=== PATIENT | male | born 2000 | race African-American/Black ===

== ENCOUNTER 2022-04-24 10:57 | Emergency (ER) | payer OTHER, SELFPAY ==
[2022-04-24 11:29] LABS: Absolute Lymphocytes (CBC) 2.4 K/uL (0.7-4.9); Hematocrit 45.6 % (39.6-49.0); Lymphocytes % 41.3 % (15.3-44.8); MCV 91.1 fL (80-100); MPV 8.3 fL (7.6-11.3)
[2022-04-24 11:33] LABS: Protime INR 1.05
[2022-04-24 12:21] LABS: Urine Blood 1+ (Negative); Urine Glucose Negative (Negative); Urine Protein Negative (Negative)
[2022-04-24 12:54] LABS: ALT/SGPT 22 U/L (12-78); Albumin 4.2 g/dL (3.4-5.0); Alkaline Phosphatase 65 U/L (45-117); BUN Blood Urea Nitrogen 15 mg/dL (7-18); Bicarbonate 30 mmol/L (21-32); Bilirubin Total 0.5 mg/dL (0.2-1.0); Glomerular Filtration Rate 93 ml/min (=/>90); Glucose Level 121 mg/dL (74-106); Protein, Total 7.7 g/dL (6.4-8.2); Sodium Level 139 mmol/L (136-145)
[2022-04-24 12:55] LABS: Creatine Phosphokinase 200 U/L (39-308); Lipase 199 U/L (73-393)
[2022-04-24 12:56] LABS: AST/SGOT 19 U/L (15-37); Bilirubin Direct < 0.1 mg/dL (0-0.2); CKMB Creatine Kinase MB < 1.0 ng/mL (1.0-3.6); Magnesium 2.1 mg/dL (1.8-2.4); Potassium 3.6 mmol/L (3.5-5.1)
[2022-04-24] MEDS ORDERED: NA CHLORIDE 0.9% 0 ML ONE (13:01)
--- NOTE | 2022-04-24 14:09 | ER ---
Nurse's Notes [facility] Name: Lisa Gauthier Age: 22 yrs Sex: Male : 2000 Arrival Date: 04/24/2022 Time: 10:59 Bed 17 Private MD: Diagnosis: Syncope Presentation: 04/24 11:00 Chief complaint: Parent and/or Guardian states: he passed out at work, BP was 135/99, iw they gave jacob oxygen , was 94% , he said he got dizzy and his face was numb and he passed out, he works in heat. Coronavirus screen: Client presents with at least one sign or symptom that may indicate coronavirus-19. Ebola Screen: Patient negative for fever greater than or equal to 101.5 degrees Fahrenheit, and additional compatible Ebola Virus Disease symptoms Patient denies exposure to infectious person. Patient denies travel to an Ebola-affected area in the 21 days before illness onset. No symptoms or risks identified at this time. Initial Sepsis Screen: Does the patient meet any 2 criteria? No. Patient's initial sepsis screen is negative. Does the patient have a suspected source of infection? No. Patient's initial sepsis screen is negative. Risk Assessment: Do you want to hurt yourself or someone else? Patient reports no desire to harm self or others. Onset of symptoms was April 24, 2022. 11:00 Method Of Arrival: Ambulatory iw 11:00 Acuity: ANNIE 3 iw Triage Assessment: 11:06 General: Appears in no apparent distress. Behavior is calm, cooperative, appropriate ll1 for age. Pain: Denies pain. Neuro: Reports dizziness, a syncopal episode better now. Historical: - Allergies: 11:05 No Known Allergies; ll1 - Home Meds: 11:08 None [Active]; iw - PMHx: 11:05 None; ll1 - PSHx: 11:05 None; ll1 - Immunization history:: Adult Immunizations up to date. - Social history:: Smoking status: Patient reports the use of cigarette tobacco products, smokes one pack cigarettes per day. Screenin:07 Abuse screen: Denies threats or abuse. Nutritional screening: No deficits noted. ll1 Tuberculosis screening: No symptoms or risk factors identified. 14:31 Fall Risk Total Boswell Fall Scale indicates No Risk (0-24 pts). ll1 Assessment: 11:36 General: Appears in no apparent distress. comfortable, Behavior is calm, cooperative, kr3 appropriate for age. 11:56 Neuro: Level of Consciousness is awake, alert, obeys commands, Facial symmetry appears kr3 normal, Pupils are PERRLA. Cardiovascular: Cardiovascular:. Respiratory: Airway is patent. 13:00 Reassessment: No changes from previously documented assessment. Patient and/or family ll1 updated on plan of care and expected duration. Pain level reassessed. Patient is alert, oriented x 3, equal unlabored respirations, skin warm/dry/pink. 14:00 Reassessment: No changes from previously documented assessment. Patient and/or family ll1 updated on plan of care and expected duration. Pain level reassessed. 14:20 Reassessment: No changes from previously documented assessment. Patient and/or family ll1 updated on plan of care and expected duration. Pain level reassessed. Vital Signs: 11:02 BP 124 / 70; Pulse 93; Resp 18; Temp 97.8; Pulse Ox 100% on R/A; iw 11:35 BP 116 / 65 LA Supine; Pulse 62 LA; kr3 11:35 BP 125 / 84 LA Sitting; Pulse 71 LA; kr3 11:35 BP 116 / 80 LA Standing; Pulse 78 LA; kr3 12:59 BP 112 / 78; Pulse 70; Resp 16; ll1 ED Course: 10:59 Patient arrived in ED. mr 10:59 JohnAlea, KISHORE [facility]. kb 10:59 Lv Gacres DO is Attending Physician. kb 11:02 Triage completed. iw 11:03 Arm band placed on. iw 11:04 Patient placed in an exam room, on a stretcher. ll1 11:07 Yennifer Gaston, ROBLES is Primary Nurse. kr3 11:38 Bed in low position. Call light in reach. Side rails up X 1. kr3 11:39 Missed attempt(s): 22 gauge in right antecubital area. labs collected and sent. kr3 Bleeding controlled, band aid applied, catheter tip intact. 14:20 No provider procedures requiring assistance completed. Patient did not have IV access ll1 during this emergency room visit. Administered Medications: 12:58 Not Given (Patient Refused): NS 0.9% 1000 ml IV at 1000 ml once ll1 Medication: 11:07 VIS not applicable for this client. 1 Outcome: 14:08 Discharge ordered by MD. bill 14:20 Discharged to [facility] 14:20 Condition: stable 14:20 Discharge instructions given to patient, Instructed on discharge instructions, follow up and referral plans. Demonstrated understanding of instructions, follow-up care. 14:31 Patient left the ED. 1 Signatures: Alea Lopez, DRIVER/GUIDE-C DRIVER/GUIDE-CkNeha Elizabeth mr Carlotta Husain RN ROBLES iw Emani Lincoln RN RN ll1 Yennifer Gaston RN RN kr3
--- NOTE | 2022-04-24 14:09 | EDPHYS ---
Physician Documentation [facility] Name: Lisa Gauthier Age: 22 yrs Sex: Male : 2000 Arrival Date: 04/24/2022 Time: 10:59 Bed 17 Private MD: ED Physician Lv Garces HPI: 04/24 14:53 This 22 yrs old Black Male presents to ER via Ambulatory with complaints of Numbness Of kb Face, High Blood Pressure, Low O2. 14:53 The patient has experienced syncope, lost consciousness. Onset: The symptoms/episode kb began/occurred today. Duration: This was a single episode, lasted one or two seconds. Context: the episode(s) was witnessed, by co-worker(s), occurred at work, occurred while the patient was working. Associated injury: The patient did not suffer any apparent associated injury. Associated signs and symptoms: The patient has no apparent associated signs or symptoms. Current symptoms: Currently, the patient is not experiencing any symptoms. The patient has not experienced similar symptoms in the past. The patient has not recently seen a physician. Pt reports he was working and passed out. Denies any injury. States he was dizzy prior to that. Was around chemicals at work and was in a hot environment. Feeling better now. Historical: - Allergies: 11:05 No Known Allergies; ll1 - Home Meds: 11:08 None [Active]; iw - PMHx: 11:05 None; ll1 - PSHx: 11:05 None; ll1 - Immunization history:: Adult Immunizations up to date. - Social history:: Smoking status: Patient reports the use of cigarette tobacco products, smokes one pack cigarettes per day. ROS: 14:53 Constitutional: Negative for fever, chills, and weight loss. kb 14:53 Neuro: Positive for dizziness, syncope. 14:53 All other systems are negative. Exam: 11:14 Constitutional: This is a well developed, well nourished patient who is awake, alert, kb and in no acute distress. Head/Face: Normocephalic, atraumatic. Eyes: Pupils equal round and reactive to light, extra-ocular motions intact. Lids and lashes normal. Conjunctiva and sclera are non-icteric and not injected. Cornea within normal limits. Periorbital areas with no swelling, redness, or edema. ENT: Moist Mucous membranes Cardiovascular: Regular rate and rhythm with a normal S1 and S2. No gallops, murmurs, or rubs. No pulse deficits. Respiratory: Respirations even and unlabored. No increased work of breathing. Talking in full sentences Abdomen/GI: Soft, non-tender. No distention Skin: Warm, dry with normal turgor. Normal color. MS/ Extremity: Pulses equal, no cyanosis. Neurovascular intact. Full, normal range of motion. Neuro: Awake and alert, GCS 15, oriented to person, place, time, and situation. Moves all extremities. Normal gait. Psych: Awake, alert, with orientation to person, place and time. Behavior, mood, and affect are within normal limits. 11:14 ECG was reviewed by the Attending Physician. Vital Signs: 11:02 BP 124 / 70; Pulse 93; Resp 18; Temp 97.8; Pulse Ox 100% on R/A; iw 11:35 BP 116 / 65 LA Supine; Pulse 62 LA; kr3 11:35 BP 125 / 84 LA Sitting; Pulse 71 LA; kr3 11:35 BP 116 / 80 LA Standing; Pulse 78 LA; kr3 12:59 BP 112 / 78; Pulse 70; Resp 16; ll1 MDM: 10:59 Patient medically screened. kb 11:16 Data reviewed: vital signs, nurses notes. Data interpreted: Pulse oximetry: on room air kb is 100 %. Interpretation: normal. 14:53 Counseling: I had a detailed discussion with the patient and/or guardian regarding: the kb historical points, exam findings, and any diagnostic results supporting the discharge/admit diagnosis, lab results, radiology results, the need for outpatient follow up, a family practitioner, to return to the emergency department if symptoms worsen or persist or if there are any questions or concerns that arise at home. 04/24 11:05 Order name: Basic Metabolic Panel; Complete Time: 13:00 kb 04/24 11:05 Order name: CBC with Diff; Complete Time: 11:41 kb 04/24 11:05 Order name: CPK; Complete Time: 13:00 kb 04/24 11:05 Order name: Ckmb; Complete Time: 13:00 kb 04/24 11:05 Order name: Hepatic Function; Complete Time: 13:00 kb 04/24 11:05 Order name: Lipase; Complete Time: 13:00 kb 04/24 11:05 Order name: Magnesium; Complete Time: 13:00 kb 04/24 11:05 Order name: Protime (+inr); Complete Time: 11:41 kb 04/24 11:05 Order name: Ptt, Activated; Complete Time: 11:41 kb 04/24 11:05 Order name: EKG; Complete Time: 11:08 kb 04/24 11:05 Order name: Cardiac monitoring; Complete Time: 11:07 kb 04/24 11:09 Order name: COVID-19 SARS RT PCR (Document "Date of Onset" if Symptomatic); Complete kb Time: 13:00 04/24 12:22 Order name: Urine Dipstick-Ancillary; Complete Time: 12:26 EDMS 04/24 11:05 Order name: EKG - Nurse/Tech; Complete Time: 11:07 kb 04/24 11:05 Order name: Labs collected and sent; Complete Time: 11:28 kb 04/24 11:05 Order name: NPO; Complete Time: 11:15 kb 04/24 11:05 Order name: O2 Per Protocol; Complete Time: 11:15 kb 04/24 11:05 Order name: O2 Sat Monitoring; Complete Time: 11:15 kb 04/24 11:05 Order name: Urine Dipstick-Ancillary (obtain specimen); Complete Time: 13:27 kb 04/24 11:05 Order name: Orthostatics; Complete Time: 11:34 kb EC:14 Rate is 72 beats/min. Rhythm is regular. QRS Nursery is Normal. WA interval is normal at kb 168 msec. QRS interval is normal at 88 msec. QT interval is normal at 381 msec. Administered Medications: 12:58 Not Given (Patient Refused): NS 0.9% 1000 ml IV at 1000 ml once ll1 Disposition: 21:24 Co-signature as Attending Physician, Lv Garces DO I agree with the assessment and ms3 plan of care. Disposition Summary: 04/24/22 14:08 Discharge Ordered Location: Home kb Condition: Stable kb Diagnosis - Syncope kb Followup: kb - With: Emergency Department - When: As needed - Reason: Worsening of condition Followup: kb - With: Private Physician - When: 2 - 3 days - Reason: Recheck today's complaints, Continuance of care, Re-evaluation by your physician Discharge Instructions: - Syncope, [id number] kb - Discharge Summary Sheet ll1 Forms: - Medication Reconciliation Form kb - Thank You Letter kb - Antibiotic Education kb - Prescription Opioid Use kb - Work release form ll1 Signatures: Dispatcher [employer] Alea Noel, KIM-C KIM-Carlotta Bernardo RN RN iw Emani Lincoln RN RN ll1 Lv Garces DO DO ms3
[2022-04-24 14:39] VITALS: TEMP 97.8; O2SAT 100
[2022-04-24 14:46] VITALS: BP 112/78
== END 2022-04-24 14:31 | disposition home or self-care (01) ==
LOC: ER 10:57
DX: R55 Syncope and collapse (principal); Z20.822 Contact with and (suspected) exposure to COVID-19; F17.210 Nicotine dependence, cigarettes, uncomplicated
CPT/HCPCS: 36415; 80048; 80076; 81003; 82550; 82553; 83690; 83735; 85025; 85610; 85730; J7030; U0003